=== PATIENT | male | born 1990 | race Caucasian/White ===

== ENCOUNTER 2020-07-07 08:42 | Outpatient (CLI) | payer BC, SELFPAY | END 2020-07-07 08:43 | disposition home or self-care (01) | LOC: ANHCOVIDVC 08:42 | PROVIDERS: PCP Family Medicine | DX: Z23 Encounter for immunization (principal) | CPT/HCPCS: 0001A; 91300 ==

== ENCOUNTER 2020-07-28 08:40 | Outpatient (CLI) | payer BC, SELFPAY | END 2020-07-28 08:41 | disposition home or self-care (01) | LOC: ANHCOVIDVC 08:40 | PROVIDERS: PCP Family Medicine | DX: Z23 Encounter for immunization (principal) | CPT/HCPCS: 0002A; 91300 ==

== ENCOUNTER 2022-03-21 08:52 | Outpatient (CLI) | payer BC, SELFPAY ==
[2022-03-21 09:30] LABS: Hematocrit 43.3 % (42.0-52.0); Hemoglobin 14.9 g/dL (14.0-18.0); Mean Corpuscular HGB Conc 34.4 g/dl (32-36); Mean Corpuscular Hemoglobin 28.9 pg (26-34); Mean Corpuscular Volume 83.9 fl (80-100); Mean Platelet Volume 9.5 fl (7.4-10.4); Platelet Count Result 312 k/mm3 (150-375); Red Blood Count 5.16 M/mm3 (4.6-6.20); Red Cell Distribution Width 12.5 % (11.5-14.5); White Blood Count 6.5 K/mm3 (4.5-10.0)
[2022-03-21 09:31] LABS: Alanine Aminotransferase 76 U/L (6-50); Albumin Level 4.9 g/dL (3.5-5.1); Alkaline Phosphatase 70 U/L (38-126); Anion Gap 10 mmol/L (8-16); Aspartate Amino Transferase 37 U/L (17-59); Bilirubin,Total 0.5 mg/dL (0.2-1.3); Blood Urea Nitrogen 24 mg/dL (9-20); Calcium 9.4 mg/dL (8.4-10.2); Carbon Dioxide 22 mmol/L (22-30); Chloride 108 mmol/L (98-107); Cholesterol 160 mg/dL (0-200); Estimated Glomerular Filt Rate > 60; Glucose 99 mg/dL (65-110); HDL Direct 39 mg/dL; Potassium 4.3 mmol/L (3.4-5.0); Sodium 140 mmol/L (137-145); Triglycerides 51 mg/dL (<150)
[2022-03-21 09:42] LABS: LDL Cholesterol Direct 88 mg/dL
[2022-03-21 09:43] LABS: Appearance Urine Clear (Clear); Bilirubin Urine Negative (Negative); Blood Urine Negative (Negative); Color Urine Yellow (Yellow); Glucose Urine UA Negative (Negative); Ketones Urine Negative (Negative); Leukocyte Esterase Ur Negative LEU/UL (NEGATIVE); Nitrate Urine Negative (Negative); Protein Urine Trace mg/dL (Negative); Specific Grav Ur >= 1.030 (1.001-1.035); Urobilinogen Urine 0.2 mg/dL (<2.0); pH Urine 5.5 (5.0-9.0)
[2022-03-21 10:06] LABS: Mucus Urine Rare /lpf; RBC Urine 0-2 /hpf (0-2); WBC Urine 0-3 /hpf (0-3)
[2022-03-21 10:18] LABS: Add Urine Microscopic? YES
== END 2022-03-21 08:53 | disposition home or self-care (01) ==
LOC: ANHLAB 08:54
PROVIDERS: PCP Family Medicine; Visit Provider Family Medicine
DX: Z00.00 Encounter for general adult medical examination without abnormal findings (principal); R74.8 Abnormal levels of other serum enzymes
CPT/HCPCS: 36415; 80053; 80061; 81001; 84443; 85027

== ENCOUNTER 2022-04-23 09:02 | Emergency (ER) | payer BC, SELFPAY ==
[2022-04-23 09:08] VITALS: BP 126/84; PULSE 107; RESP 20; TEMP 36.3; O2SAT 97
--- NOTE | 2022-04-23 09:43 | ED.URI ---
HPI - URI/Sore Throat General Chief Complaint: Upper Respiratory Infection Stated Complaint: Sore Throat Time Seen by Provider: 04/23/22 09:43 Source: patient, RN notes reviewed and old records reviewed Mode of arrival: ambulatory Limitations: no limitations History of Present Illness HPI Narrative: 32-year-old male presents to the [facility] with complaints sore throat for 3 days. Has been taking ibuprofen and Mucinex. Onset (ago): day(s) (3) Treatments prior to arrival: ibuprofen and cold medicine Related Data Allergies Allergy/AdvReac Type Severity Reaction Status Date / Time No Known Allergies Allergy Verified 04/23/22 09:44 Review of Systems Review of Systems: All systems reviewed & are unremarkable except as noted in HPI and below Constitutional: Constitutional: Reports no additional constitutional complaints Eyes: Eyes: Reports no additional eye complaints ENT: Reports as per HPI, Reports hoarseness, Denies lip swelling and Reports sore throat Cardiovascular: Cardiovascular: Reports no additional cardiovascular complaints, Denies chest pain and Denies dyspnea Respiratory: Respiratory: Reports no additional respiratory complaints, Denies chest congestion, Denies cough and Denies dyspnea Gastrointestinal: Gastrointestinal: Reports no additional gastrointestinal complaints, Denies abdominal pain, Denies nausea and Denies vomiting Musculoskeletal: Musculoskeletal: Reports no additional musculoskeletal complaints Integumentary/Breasts: Skin/Breast: Reports system reviewed and no additional complaints, except as docu Neurologic: Reports system reviewed and no additional complaints, except as documented Psychiatric: Psychiatric: Reports no additional psychiatric complaints Allergic/Immunologic: Allergic/Immunologic: Reports no additional allergic/immunologic complaints [facility] Past Medical History Medical History Elevated liver enzymes Hepatic steatosis Overweight Family History Family History Father Hypertension Mother Hypertension Social History Social History Smoking status: Never smoker Second hand tobacco smoke exposure: No Alcohol intake: current Substance use: never Substance use type: does not use Gender identity (if verbalized by the patient): Male Sexual Orientation (if Verbalized by the Patient): Straight or Heterosexual Comments At the time of my signature, I reviewed and agree with the nursing past medical, surgical, social, and family history. There is no relevant family history pertinent to the patient complaint. Exam Const: General: cooperative, healthy appearing, comfortable, no acute distress, well developed, alert and well nourished Nutritional Appearance: well nourished Orientation/consciousness: patient oriented x3 Limitations: no limitations HENMT: Head: normal to inspection Ears: hearing grossly normal bilaterally and external ears normal Face/Nose/Sinus: Normal external nose present, Normal nares present, Normal nasal mucous membranes and turbinates present and normal facial exam Face and sinus: normal facial exam Mouth: Yes Normal oral and palatal mucosa present, Yes lip normal and Yes moist mucous membranes Throat: uvula midline, abnormal tonsil bilateral erythema, exudates and hypertrophy 2+, posterior oropharynx abnormal erythema, postnasal drainage and uvular edema Eyes: General: appearance normal, both eyes and all related structures Alignment and Position: alignment normal Periorbital: periorbital findings normal Conjunctivae: conjunctivae normal Pupils: Equal, round and reactive pupils present EOM: EOMs intact bilaterally Neck: Neck: normal visual inspection, full ROM, no meningeal signs and lymphadenopathy (Submandibular bilateral) Chest: Chest palpation & inspection: normal inspect
== END 2022-04-23 09:59 | disposition home or self-care (01) ==
PROVIDERS: Emergency Provider Nurse Practitioner; PCP Family Medicine
DX: K12.2 Cellulitis and abscess of mouth (principal); J03.90 Acute tonsillitis, unspecified; K76.0 Fatty (change of) liver, not elsewhere classified
CPT/HCPCS: 87081; 99213; G0463

== ENCOUNTER 2024-06-02 14:26 | Emergency (ER) | payer BC, SELFPAY ==
--- OUTSIDE RECORDS SUMMARY | 2024-06-02 14:35 | XMS_ITS | Referral Summary ---
Author Organization [facility] Address [address] [place] [address] Care Team Providers Care President & Founder Name Role Phone Unavailable Primary Care Provider Unavailabl e Source Comments [facility],non-owned Affiliates and Associated Physician Practices is amultiple site organization consisting of ambulatory clinics and hospital sitesin [place], [place], [place] and [place]. This disclosure is being madepursuant to the Care Everywhere program and may not contain all information available regarding this patient. Last updated 18.[facility] Allergies No known active allergies Medications * Be aware that medications may not be up to date on this document. Alwaysverify current medications with the patient. Medication Sig Dispensed Refills Start Date End Date Status oxyCODONE-acetaminoph en (PERCOCET) 10-325 MG tablet Take 1 Tab by mouth every 6 hours as needed for Pain 30 Tab 0 11/25/2014 Active tamsulosin (FLOMAX) 0.4 MG capsule Take 1 Cap by mouth once daily Take 30 minutes after a meal at the same time each day. 5 Cap 0 11/25/2014 Active ondansetron, disintegrating, (ZOFRAN ODT) 4 MG tablet Take 1 Tab by mouth every 6 hours as needed for Nausea/Vomiting Allow tablet to dissolve on the tongue 20 Tab 0 11/25/2014 Active Social History Tobacco Use Types Packs/Day Years Used Date Smoking Tobacco: Never Alcohol Use Standard Drinks/Week Comments Yes 0 (1 standard drink = 0.6 oz pur e alcohol) socially Sex and Gender Information Value Date Recorded Sex Assigned at Not on file Gender Identity Not on file Sexual Orientation Not on file Last Filed Vital Signs Vital Sign Reading Time Taken Comments Blood Pressure 107/70 11/25/2014 11:50 AM CDT Pulse 80 11/25/2014 11:50 AM CDT Temperature 36.9 ??C (98.4 ??F) 11/25/2014 11:50 AM C DT Respiratory Rate 9 11/25/2014 11:50 AM CDT Oxygen Saturation 100% 11/25/2014 11:50 AM CDT Inhaled Oxygen Concentration - - Weight 94.8 kg (209 lb) 11/25/2014 9:27 AM CDT Height 182.9 cm (6') 11/25/2014 9:27 AM CDT Body Mass Index 28.35 11/25/2014 9:27 AM CDT Plan of Treatment Not on file
--- OUTSIDE RECORDS SUMMARY | 2024-06-02 14:35 | XMS_ITS | Clinical Summary ---
Author Organization [facility] Address [address] [place] [address] Care Team Providers Care Industrial Relations Officer Name Role Phone Unavailable Primary Care Provider Unavailabl e Source Comments [facility],non-owned Affiliates and Associated Physician Practices is amultiple site organization consisting of ambulatory clinics and hospital sitesin [place], [place], [place] and [place]. This disclosure is being madepursuant to the Care Everywhere program and may not contain all information available regarding this patient. Last updated 18.[facility] Allergies No known active allergies Medications * [...] 11/25/2014 9:27 AM CDT Plan of Treatment Health Maintenance Due Date Last Done Comments HIV SCREENING 2004 HEPATITIS C SCREENING 03/26/2007 DTAP/TDAP/TD VACCINES (1 - Tdap) 2008 HEPATITIS B VACCINE (1 of 3 - 19+ 3-dose series) 2008 COVID-19 VACCINE ( - 2023-2 5 season) 2023 INFLUENZA VACCINE (#1) 2023 DEPRESSION SCREENING 04/29/2024 ZOSTER VACCINE (1 of 2) 2039 HIB VACCINE Aged Out No longer eligi ble based on patient's age to complete this topic HPV VACCINE Aged Out No longer eligi ble based on patient's age to complete this topic MENINGOCOCCAL (Group B) VACCINE Aged Out No longer eligible based on patient's age to complete this topic MENINGOCOCCAL VACCINE Aged Out No maria del carmen omayra eligible based on patient's age to complete this topic PNEUMOCOCCAL VACCINE Aged Out No long er eligible based on patient's age to complete this topic
--- OUTSIDE RECORDS SUMMARY | 2024-06-02 14:35 | XMS_ITS | Patient Health Summary ---
Author Organization [facility] Address [address] [place] [address] Care Team Providers Care Wildlife Manager Name Role Phone Unavailable Primary Care Provider Unavailabl e Note from [facility],non-owned Affiliates and Associated Physician Practices is amultiple site organization consisting of ambulatory clinics and hospital sitesin [place], [place]. This disclosure is being madepursuant to the Care Everywhere program and may not contain all information available regarding this patient. Last updated 18.[facility] Allergies No known active allergies Medications * Be aware that medications may not be up to date on this document. Alwaysverify current medications with the patient. * oxyCODONE-acetaminophen (PERCOCET) 10-325 MG tablet(Started 11/25/2014) Take 1 Tab by mouth every 6 hours as needed for Pain * tamsulosin (FLOMAX) 0.4 MG capsule(Started 11/25/2014) Take 1 Cap by mouth once daily Take 30 minutes after a meal at the same time each day. * ondansetron, disintegrating, (ZOFRAN ODT) 4 MG tablet(Started 11/25/2014) Take 1 Tab by mouth every 6 hours as needed for Nausea/Vomiting Allow tablet to dissolve on the tongue Social History Tobacco Use Types Packs/Day Years [...] Mass Index 28.35 11/25/2014 9:27 AM CDT Procedures * CT ABDOMEN PELVIS WO CONTRAST(Performed 11/25/2014) Performed for Flank pain * URINALYSIS REFLEX MICROSCOPIC REFLEX CULTURE(Performed 11/25/2014) * COMPREHENSIVE METABOLIC PANEL(Performed 11/25/2014) * CBC W AUTO DIFFERENTIAL(Performed 11/25/2014) * GROSS + MICRO EXAM(Performed 01/01/1997) Results * CT RENAL STONE PROTOCOL (NO IV AND NO ORAL CONTRAST) (11/25/2014 10:28 AM CDT) Anatomical Region Laterality Modality Abdomen, Pelvis Computed Tomogra phy 11/25/2014 10:3 2 AM CDT Impressions 11/25/2014 10:36 AM CDT 1. Mild to moderate right hydronephrosis and hydroureter extending to a 2-3 mm stone near the right ureterovesicular junction. Narrative 11/25/2014 10:36 AM CDT Examination: CT of the abdomen and pelvis without contrast History: Right flank pain Findings: CT of the abdomen and pelvis was performed without intravenous contrast. No comparison examination is available. Images through the lung bases demonstrate a calcified granuloma in the right lower lobe. No consolidation, pleural effusion, or pneumothorax is seen. There is no pericardial effusion. Noncontrast appearance of the liver appears normal. Gallbladder appears normal. Spleen appears normal. Small splenule is noted. Adrenal glands appear normal. No peripancreatic stranding is seen. No left-sided hydronephrosis or renal stone is noted. There is mild to moderate right-sided hydronephrosis and proximal hydroureter. This extends to a small 2-3 mm stone likely within the distal right ureter near the ureterovesicular junction. The urinary bladder is decompressed, no stone is seen within the bladder. No free pelvic fluid is seen. There is no evidence of bowel obstruction. The appendix is normal. No suspicious osseous lytic or blastic lesion is seen. Procedure Note Ranjit, Fahad B, MD - 11/25/2014 Examination: CT of the abdomen and pelvis without contrast History: Right flank pain Findings: CT of the abdomen and pelvis was performed without intravenous contrast. No comparison examination is available. Images through the lung bases demonstrate a calcified granuloma in the right lower lobe. No consolidation, pleural effusion, or pneumothorax is seen. There is no pericardial effusion. Noncontrast appearance of the liver appears normal. Gallbladder appears normal. Spleen appears normal. Small splenule is noted. Adrenal glands appear normal. No peripancreatic stranding is seen. No left-sided hydronephrosis or renal stone is noted. There is mild to moderate right-sided hydronephrosis and proximal hydroureter. This extends to a small 2-3 mm stone likely within the distal right ureter near the ureterovesicular junction. The urinary bladder is decompressed, no stone is seen within the bladder. No free pelvic fluid is seen. There is no evidence of bowel obstruction. The appendix is normal. No suspicious osseous lytic or blastic lesion is seen. IMPRESSION 1. Mild to moderate right hydronephrosis and hydroureter extending to a 2-3 mm stone near the right ureterovesicular junction. Rea Mccoy MD CT ORDERABLES * (ABNORMAL) URINALYSIS ROUTINE W/REFLEX TO CULTURE (11/25/2014 9:49 AM CDT) Color UA Yellow Straw, Yellow, Dark Yellow 11/25/2014 10:07 AM T [facility] Clarity UA Clear 11/25/2014 10:07 AM T [facility] Specific [place] UA 1.023 1.005 - 1.030 11/25/2014 10:07 AM CDT [facility] pH UA 6.0 5.0 - 8.0 pH 11/25/2014 10:07 AM CDT [facility] Protein UA Negative Negative 11/25/2014 10:07 AM CDT [facility] Blood UA 3+(A) Negative 11/25/2014 10:07 AM CDT [facility] Leukocyte UA Negative Negative 11/25/2014 10:07 AM CDT [facility] Nitrite UA Negative Negative 11/25/2014 10:07 AM CDT [facility] Glucose UA Negative Negative 11/25/2014 10:07 AM CDT [facility] Ketone UA Negative Negative 11/25/2014 10:07 AM CDT [facility] Bilirubin UA Negative Negative 11/25/2014 10:07 AM CDT [facility] Urobilinogen UA 0.2 0.1 - 1.0 EU/dL 11/25/2014 10:07 AM CDT [facility] WBC UA Auto 0-2 0-2, 2-5 # /hpf 11/25/2014 10:07 AM CDT [facility] RBC UA Auto 20-50(A) 0-2, 2-5 # /hpf 11/25/2014 10:07 AM CDT [facility] Epithelial Cell UA Auto 0-2 0-2, 2-5 # /hpf 11/25/2014 10:07 AM CDT [facility] Reflex Status Culture not indicated 11/25/2014 10:07 AM CDT [facility] Urine URINE SPECIMEN OBTAINED BY CLEAN CATCH PROCEDURE / Unknown 11/25/2014 9:49 AM CDT 11/25/2014 9:55 AM CDT Rea Mccoy MD LAB - URINALYSIS ORD ERABLES [facility] [address], [place] [id number] * CBC W AUTO DIFFERENTIAL (11/25/2014 9:49 AM CDT) WBC 8.0 4.4 - 10.7 x10^9/L 11/25/2014 9:58 AM CDT [facility] WBC Corrected x10^9/L 11/25/2014 9:58 AM CDT [facility] RBC 4.93 3.80 - 5.40 x10^12/L 11/25/2014 9:58 AM CDT [facility] Hemoglobin 14.5 12.0 - 17.6 gm/dL 11/25/2014 9:58 AM CDT [facility] Hematocrit 41.4 35.2 - 51.7 % 11/25/2014 9:58 AM CDT [facility] MCV 84.0 80.7 - 98.3 fl 11/25/2014 9:58 AM CDT [facility] MCH 29.4 26.7 - 34.0 pg 11/25/2014 9:[address] [facility] MCHC 35.0 30.8 - 35.9 gm/dL 11/25/2014 9:[address] [facility] Platelet Count 306 153 - 416 x10^9/L 11/25/2014 9:[address] [facility] RDW-CV 12.4 12.1 - 14.9 % 11/25/2014 9:[address] [facility] MPV 9.8 9.4 - 12.9 fl 11/25/2014 9:[address] [facility] Neutrophils % 61.2 44.0 - 73.0 % 11/25/2014 9:[address] [facility] Lymphocytes % 26.7 20.0 - 43.0 % 11/25/2014 9:[address] [facility] Monocytes % 10.2 5.0 - 13.0 % 11/25/2014 9:[address] [facility] Eosinophils % 1.2 0.0 - 6.0 % 11/25/2014 9:[address] [facility] Basophils % 0.5 0.0 - 2.0 % 11/25/2014 9:[address] [facility] Immature Granulocytes 0.2 0 - 1 % 11/25/2014 9:[address] [facility] Neutrophil Absolute 4.91 2.01 - 7.14 x10^9/L 11/25/2014 9:[address] [facility] Lymphocytes Absolute 2.14 1.07 - 3.94 x10^9/L 11/25/2014 9:[address] [facility] Monocytes Absolute 0.82 0.26 - 1.07 x10^9/L 11/25/2014 9:[address] [facility] Eosinophils Absolute 0.10 0 - 0.47 x10^9/L 11/25/2014 9:[address] [facility] Basophils Absolute 0.04 0 - 0.08 x10^9/L 11/25/2014 9:[address] [facility] Immature Granulocytes Absolute 0.02 0.00 - 0.06 x10^9/L 11/25/2014 9:[address] [facility] nRBC Auto 0 /100 WBC 11/25/2014 9:[address] [facility] Blood BLOOD SPECIMEN / Unknown 11/25/2014 9:49 AM CDT 11/25/2014 9:55 AM CDT Rea Mccoy MD LAB - HEMATOLOGY ORD ERABLES [facility] [address] [place] [address] * (ABNORMAL) COMPREHENSIVE METABOLIC PANEL (11/25/2014 9:49 AM CDT) [facility] Glucose 110(H) 74 - 106 mg/dL 11/25/2014 10:13 AM CDT [facility] Sodium 143 136 - 145 mmol/L 11/25/2014 10:13 AM CDT [facility] Potassium 3.8 3.5 - 5.1 mmol/L 11/25/2014 10:13 AM CDT [facility] Chloride 107 98 - 107 mmol/L 11/25/2014 10:13 AM CDT [facility] CO2 24 22 - 31 mmol/L 11/25/2014 10:13 AM CDT [facility] Calcium 9.1 8.5 - 10.1 mg/dL 11/25/2014 10:13 AM CDT [facility] Anion Gap 12 5 - 20 mmol/L 11/25/2014 10:13 AM CDT [facility] BUN 16 7 - 21 mg/dL 11/25/2014 10:13 AM CDT [facility] Creatinine 1.20 0.50 - 1.30 mg/dL [facility]/25[facility]2014 [facility] Alkaline Phosphatase 106 38 - 126 U/L 11/25/2014 10:13 AM CDT [facility] ALT 87(H) 12 - 78 U/L 11/25/2014 10:13 AM CDT [facility] AST 30 5 - 40 U/L 11/25/2014 10:13 AM CDT [facility] Protein Total 8.2 6.4 - 8.2 gm/dL 11/25/2014 10:13 AM CDT [facility] Albumin 4.6 3.4 - 5.0 gm/dL 11/25/2014 10:13 AM CDT [facility] Bilirubin Total 0.4 0.2 - 1.0 mg/dL 11/25/2014 10:13 AM CDT [facility] eGFR by MDRD >60 >60 mL/min/1.7 2 11/25/2014 10:13 AM CDT [facility] eGFR by MDRD >60 >60 mL/min/1.7 2 11/25/2014 10:13 AM CDT [facility] Blood BLOOD SPECIMEN / Unknown 11/25/2014 9:49 AM CDT 11/25/2014 9:56 AM CDT Rea Mccoy MD LAB - CHEMISTRY MARLEY BARRAG[place] [facility] [address] [place] [address] * GROSS + MICRO EXAM (01/01/1997 11:05 AM CDT) Result CASE NUMBER [id number] [facility] PATH REPORT Comment: ORDERING PHYSICIAN ??TY ALANIZ SPECIMEN TYPE ?Duodenum, Biopsy CLINICAL HISTORY ? The patient is a 6-year-old boy with abdominal pain who underwent an upper endoscopy. ??Operative finding was esophagitis. GROSS DESCRIPTION ? The specimens are received fixed in formalin in three containers for gross and microscopic examination. ??In the first container labeled A, duodenum is a single minute fragment of yellow-uribe soft tissue measuring 0.3 cm. in greatest dimension. ??The specimen is submitted in toto as A1 . In the next container labeled B, gastric are four minute fragments of conrad-uribe soft tissue each with a measurement of 0.3 cm. in greatest dimension. ??The specimens are submitted in toto as B1 . In the next container labeled C, esophagus is a single minute fragment of conrad, soft tissue measuring 1 mm. in greatest dimension. ??The specimen is submitted in toto as C1 . ??(CT/akn) MICROSCOPIC DESCRIPTION ? 9 slides, H/E Sections from the duodenum show a single fragment of duodenal mucosa with a normal villous architecture and a normal complement of inflammatory cells. ?? Sections from the gastric biopsies show very small fragments of superficial gastric mucosa without significant inflammation. Sections from the esophagus biopsy show a single very small and superficial fragment of squamous epithelium. ??Papillae are not seen. ?? (PEDRO/hm) DIAGNOSIS ? DIAGNOSIS ?A) DUODENUM, BIOPSY ?- NO PATHOLOGIC DIAGNOSIS. ? B) STOMACH, BIOPSY ?- NO PATHOLOGIC DIAGNOSIS. ? C) ESOPHAGUS, BIOPSY ?- INSUFFICIENT FOR DIAGNOSIS. [employer] Developer ? Daya Constantino RESIDENT IN PATHOLOG JRobin Swartz M.D. PATHOLOGIST ?Kvng Moon M.D. ELECTRONICALLY [facility] MISCELLANEOUS SAMPLES / Unknown 01/01/1997 11:05 AM CDT 01/01/1997 12:24 PM CDT Historical Provider LAB - PATHOLOGY/C YTOLOGY ORDERABLES [facility] PATH REPORT
[2024-06-02 15:11] VITALS: BP 128/85; PULSE 103; RESP 18; TEMP 36.1; O2SAT 99
[2024-06-02 15:14] LABS: EDSTREPNEGPOS1 Negative (Negative)
[2024-06-02 15:26] LABS: EDINFLUASCREEN Negative (Negative); EDINFLUBSCREEN Negative (Negative)
[2024-06-02 15:26] LABS: EDCOVIDSCREEN Negative (Negative)
--- NOTE | 2024-06-02 15:58 | ED_ITS ---
HPI - URI/Sore Throat General Stated Complaint: flu like symptoms Time Seen by Provider: 06/02/24 15:58 Source: patient, RN notes reviewed and old records reviewed Mode of arrival: ambulatory Limitations: no limitations History of Present Illness HPI Narrative: patient presents with complaints of flu-like symptoms for 3 days. He reports that he has been taking [id number] medication with good results. Says that he is feeling better today than he did yesterday. He reports worse symptom is body aches. He denies any shortness of breath. He denies any injury or trauma. He is not in any distress. Related Data Home Medications ?Medication ?Instructions ?Recorded ?Confirmed ?Last Taken ?Type No Home Medications 05/12/24 05/12/24 Unknown History Allergies Allergy/AdvReac Type Severity Reaction Status Date / Time No Known Allergies Allergy Verified 06/02/24 15:59 Review of Systems Review of Systems: All systems reviewed & are unremarkable except as noted in HPI and below Constitutional: Constitutional: Reports body ache(s), Reports chills, Reports fever(s) and Reports lethargy ENT: Reports system reviewed and no additional complaints, except as documented, Reports nasal congestion and Reports nasal discharge Cardiovascular: Cardiovascular: Reports no additional cardiovascular co mplaints Respiratory: Respiratory: Reports cough Gastrointestinal: Gastrointestinal: Reports no additional gastrointestinal complaints [facility] Past Medical History Medical History Overweight Hepatic steatosis Elevated liver enzymes Family History Family History Father Hypertension Mother Hypertension Social History Social History Smoking status: Never smoker Second hand tobacco smoke exposure: No Alcohol intake: current Substance use: never Substance use type: does not use Living arrangements: with family Occupation/Education: occupation Gender identity (if verbalized by the patient): Male Sexual Orientation (if Verbalized by the Patient): Straight or Heterosexual Comments At the time of my signature, I reviewed and agree with the nursing past medical, surgical, social, and family history. There is no relevant family history pertinent to the patient complaint. Exam Const: General: cooperative, no acute distress, alert and awake Orientation/consciousness: oriented to person, oriented to place and oriented to time HENMT: Head: normal to inspection Ears: TM's normal bilaterally Mouth: Yes moist mucous membranes Throat: posterior oropharynx normal Resp: Effort & Inspection: normal respiratory effort and able to speak in complete sentences Auscultation: clear to auscultation bilaterally, no crackles, no rales, no rhonchi and no wheezes Cardio: Palpation: normal PMI Rate: regular rate Rhythm: regular rhythm Heart sounds: S1 normal heart sound present and S2 normal heart sound present Neuro: General: oriented to person, oriented to place and oriented to time Cranial nerves: Yes CN's II-XII intact bilaterally Psych: Appearance: grossly normal Thought process: Normal thought process present Insight: Good insight present (Psych) Judgement: Good judgement present (Psych) Course Course Level of Care: Express Care Visit Vital Signs Vital signs: Vital Signs Temperature 96.9 F L 06/02/24 15:11 Pulse Rate 103 H 06/02/24 15:11 Respiratory Rate 18 06/02/24 15:11 Blood Pressure 128/85 06/02/24 15:11 Pulse Oximetry 99 06/02/24 15:11 Oxygen Delivery Room Air 06/02/24 15:11 Temperature 96.9 F L 06/02/24 15:11 Pulse Rate 103 H 06/02/24 15:11 Respiratory Rate 18 06/02/24 15:11 Blood Pressure 128/85 06/02/24 15:11 Pulse Oximetry 99 06/02/24 15:11 Oxygen Delivery Room Air 06/02/24 15:11 Reviewed MDM - URI/Sore Throat MDM Narrative Medical decision making narrative: Patient with positive influenza. Supportive care measures discussed. He verbalizes understanding. He is nontoxic appearing, stable for discharge home. Discharge instructions reviewed with patient, as well as provided in writing per nursing staff. The instructions also include specific and strict return/GO TO THE ER as well as f/u information. All questions have been answered, and the patient deny any further questions with discharge and discharge plan. Some parts of this dictation were generated by voice recognition software and may contain typographical and/or grammatical inaccuracies. Differential Diagnosis Differential diagnosis: Likely upper respiratory infection, viral infection and influenza Medical Records Attestation: I reviewed the patient's medical records. Lab Data Attestation: I reviewed the patient's lab results. Labs: Lab Results 06/02/24 06/02/24 06/02/24 Range/Units 15:12 15:24 15:25 POC Influenza A Ag Negative (Negative) POC Influenza B Ag Negative (Negative) POC SARS CoV-2 Ag Negative (Negative) POC Grp A Strep Screen Negative (Negative) Discharge Plan Discharge Clinical Impression: Influenza Patient Disposition: Home, Self-Care Condition: Stable Instructions: Antibiotic Form, Influenza (ED) Additional Instructions: continue supportive care measures, follow-up with primary care provider. Emergency department for any new or worse symptoms Patient Language: Danish Prescriptions: No Action No Home Medications Follow-up/Referrals: Vikas Spence MD [Primary Care Provider] - 2 Weeks Stand Alone Forms: Work/School Release IP Time of Disposition: 16:06
== END 2024-06-02 16:10 | disposition home or self-care (01) ==
PROVIDERS: Emergency Provider Nurse Practitioner Family; PCP Family Medicine
DX: J11.1 Influenza due to unidentified influenza virus with other respiratory manifestations (principal); Z20.822 Contact with and (suspected) exposure to COVID-19
CPT/HCPCS: 87081; 87426; 87804; 87880; 99213; G0463

== ENCOUNTER 2024-11-16 11:15 | Outpatient (CLI) | payer BC, SELFPAY ==
--- OUTSIDE RECORDS SUMMARY | 2024-11-16 11:17 | XMS_ITS | Clinical Summary ---
Author Organization [facility] Address [address] 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 This disclosure is being madepursuant to the Care Everywhere program and may not contain all information available regarding this patient. Last updated 18.[facility] Allergies No known active allergies Medications * Be aware that medications may not be up to date on this document. Alwaysverify current medications with the patient. oxyCODONE-aceta minophen (PERCOCET) 10-325 MG tablet Take 1 Tab [...] mouth every 6 hours as needed for Nausea/Vomiti ng Allow tablet to dissolve on the tongue 20 Tab 0 11/25/2014 Active Social History Tobacco Use Types Packs/Day Years Used Date Smoking Tobacco: Never Alcohol Use Standard Drinks/Week Comments Yes 0 (1 standard drink = 0.6 oz pur e alcohol) socially Sex and Gender Information Value Date Recorded Sex Assigned at Not on file Legal Sex Male 5:37 AM JAI ALAI [employer]ER Gender Identity Not on file Sexual Orientation Not on file Last Filed Vital Signs Vital Sign Reading Time Taken Comments Blood Pressure 107/70 11/25/2014 11:50 AM CDT Pulse 80 11/25/2014 11:50 AM CDT Temperature 36.9 C (98.4 F) 11/25/2014 11:50 AM CDT Respiratory Rate 9 11/25/2014 11:50 AM CDT [...] of 3 - 19+ 3-dose series) 2008 HPV VACCINE (1 - 3-dose SCDM series) 2016 COVID-19 VACCINE (1 - 2023-2 5 season) 2023 DEPRESSION SCREENING 04/29/2024 INFLUENZA VACCINE (#1) 2024 ZOSTER VACCINE (1 of 2) 2039 HIB VACCINE Aged Out No longer eligi ble based on patient's age to complete this topic MENINGOCOCCAL (Group B) VACC INE SHARED DECISION-MAKING Aged Out No longer eligibl e based on patient's age to complete this topic MENINGOCOCCAL GROUPS A/C/Y/W VACCINE Aged Out No longer eligible b ased on patient's age to complete this topic PNEUMOCOCCAL VACCINE Aged Out No long er eligible based on patient's age to complete this topic Insurance [facility]
[2024-11-16 11:50] LABS: Hematocrit 41.9 % (42.0-52.0); Hemoglobin 13.7 g/dL (14.0-18.0); Immature Granulocyte Percent A 0.4 % (0-0.5); Lymphocytes Absolute Auto 1.27 K/mm3 (0.9-3.2); Mean Corpuscular HGB Conc 32.7 g/dl (32-36); Mean Corpuscular Hemoglobin 28.2 pg (26-34); Mean Corpuscular Volume 86.4 fl (80-100); Nucleated Red Blood Cells Absolute Auto 0.000 K/mm3 (0.0-0.012); Nucleated Red Blood Cells Perc 0.0 % (0.0-0.2); Platelet Count Result 330 k/mm3 (150-375); Red Blood Count 4.85 M/mm3 (4.6-6.20); White Blood Count 5.4 K/mm3 (4.5-10.0)
[2024-11-16 12:03] LABS: Add Urine Microscopic? YES; Appearance Urine Cloudy (Clear); Glucose Urine UA Negative (Negative); Leukocyte Esterase Ur Trace LEU/UL (Negative); Nitrate Urine Negative (Negative); Non Pathogenic Casts 0-2; Specific Grav Ur 1.035 (1.001-1.035)
[2024-11-16 12:12] LABS: Alanine Aminotransferase 58 U/L (6-50); Albumin Level 4.4 g/dL (3.5-5.1); Alkaline Phosphatase 59 U/L (38-126); Anion Gap 10 mmol/L (4-12); Aspartate Amino Transferase 43 U/L (17-59); Bilirubin,Total 0.4 mg/dL (0.2-1.3); Blood Urea Nitrogen 21 mg/dL (9-20); Calcium 9.1 mg/dL (8.4-10.2); Carbon Dioxide 27 mmol/L (22-30); Chloride 101 mmol/L (98-107); Estimated Glomerular Filt Rate > 60; Glucose 126 mg/dL (65-110); Potassium 3.6 mmol/L (3.4-5.0); Sodium 138 mmol/L (137-145); Total Protein 8.2 g/dL (6.3-8.2)
== END 2024-11-16 11:16 | disposition home or self-care (01) ==
LOC: ANHLAB 11:16
PROVIDERS: PCP Family Medicine
DX: R50.9 Fever, unspecified (principal); R10.9 Unspecified abdominal pain; R63.0 Anorexia
CPT/HCPCS: 36415; 80053; 81001; 85025

== ENCOUNTER 2024-12-18 02:32 | Day surgery (SDC) | payer BC, SELFPAY ==
[2024-12-07 10:37] VITALS: BMI 29.2
[2024-12-18 08:39] VITALS: BP 124/80; PULSE 78; RESP 18; TEMP 36.4; O2SAT 99; BMI 27.5
[2024-12-18] MEDS: LACTATED RINGERS 1,000 ML 150 ML IV CONT (08:49)
--- NOTE | 2024-12-18 08:56 | WPDANESEPPF ---
Anes - Initial Pre Proc Eval Procedure: Operation Date: 12/18/24 10:00 Proposed Procedures p Diagnostic Colonoscopy - Angel Krishnamurthy MD Date/Time: 12/18/24 08:56 Surgeon: Angel Krishnamurthy MD Pre Op Diagnosis: Anemia, unspecified, Lower abdominal pain Patient Data Age: 34 Gender: M Height: 1.8 m Weight: 89.5 kg Last Vital Signs Temp 36.4 C L 12/18/24 08:39 Pulse 78 12/18/24 08:39 Resp 18 12/18/24 08:39 BP 124/80 12/18/24 08:39 Pulse Ox 99 12/18/24 08:39 O2 Del Method Room Air 12/18/24 08:39 Allergies Allergy/AdvReac Type Severity Reaction Status Date / Time No Known Allergies Allergy Verified 12/18/24 08:38 Home Medications ?Medication ?Instructions ?Recorded ?Confirmed ?Type No Home Medications 05/12/24 12/07/24 History Patient hx anesthesia problems: none Family hx anesthesia problems: none Results Review: All pre-operative results and documents have been reviewed as part of the pre-operative evaluation. [facility] Past Medical History Medical History Overweight Hepatic steatosis Elevated liver enzymes Family History Family History Father Hypertension Mother Hypertension Social History Social History Smoking status: Former smoker Second hand tobacco smoke exposure: No Alcohol intake: never Substance use: never Substance use type: does not use Living arrangements: with family Occupation/Education: occupation Gender identity (if verbalized by the patient): Male Sexual Orientation (if Verbalized by the Patient): Straight or Heterosexual Spiritual care concerns: No Anes - Eval Final PreProcedure Day of Procedure 12/18/24 08:56 Patient weight: overweight Heart: regular rate and rhythm Lungs: clear to auscultation Airway: Mallampati scale class II Neurological: alert and oriented Last oral intake: >/= 8 hours ASA classification: II Emergent: no Anesthetic plan: proceed Anesthesia type and monitoring: general GIVS and standard monitoring Results Review: All pre-operative results and documents have been reviewed as part of the pre-operative evaluation. Informed Consent: The patient's anesthetic plan and its attendant risks and benefits were discussed with the patient/family/POA. Questions were solicited and answers provided to the satisfaction of the patient/family/POA.
--- NOTE | 2024-12-18 09:43 | P.HP_ITS ---
History of Present Illness History of Present Illness Consent: Risks, benefits, and alternatives have been discussed and questions answered. Patient agrees to proceed with procedure. Chief complaint: Anemia, unspecified, Lower abdominal pain Narrative: Vikas Hercules is a 34 year old male with llq pain and mild anemia, never had colonoscopy Review of Systems Review of Systems: All systems reviewed & are unremarkable except as noted in HPI and below PMFSH Past Medical History Medical History (Updated 12/18/24 @ 09:44 by Angel Krishnamurthy MD) LLQ pain Overweight Hepatic steatosis Elevated liver enzymes Family History Family History Father Hypertension Mother Hypertension Social History Social History Smoking status: Former smoker Second hand tobacco smoke exposure: No Alcohol intake: never Substance use: never Substance use type: does not use Living arrangements: with family Occupation/Education: occupation Gender identity (if verbalized by the patient): Male Sexual Orientation (if Verbalized by the Patient): Straight or Heterosexual Spiritual care concerns: No Meds Home Medications and Allergies Home Medications ?Medication ?Instructions ?Recorded ?Confirmed ?Type No Home Medications 05/12/24 12/07/24 H istory Allergies Allergy/AdvReac Type Severity Reaction Status Date / Time No Known Allergies Allergy Verified 12/18/24 08:38 Vital Signs Vital Signs - 24 hr 12/18/24 08:39 Temperature 97.5 F L Pulse Rate 78 Respiratory Rate 18 Blood Pressure 124/80 Pulse Oximetry 99 Oxygen Delivery Room Air Exam Const: General: comfortable and no acute distress HENMT: Face/Nose/Sinus: Normal nares present Eyes: General: appearance normal, both eyes and all related structures Neck: Neck: no JVD Resp: Auscultation: clear to auscultation bilaterally Cardio: Rate: regular rate Rhythm: regular rhythm GI: Inspection: non-distended GI Palp: Yes Soft to palpation Skin: General skin exam: normal color Neuro: General: gait normal Speech: normal speech Extrem: General: normal to inspection Psych: Mental Status: mental status grossly normal Assessment and Plan Assessment and plan (1) LLQ pain: Code(s): R10.32 - Left lower quadrant pain Status: Acute Assessment and Plan: colonoscopy
[2024-12-18 09:57] VITALS: BP 85/61; PULSE 86; RESP 17; O2SAT 98
[2024-12-18 10:07] VITALS: BP 107/64; PULSE 94; RESP 20; O2SAT 97
[2024-12-18 10:17] VITALS: BP 108/75; PULSE 79; RESP 18; O2SAT 98
== END 2024-12-18 10:26 | disposition home or self-care (01) ==
PROVIDERS: PCP Family Medicine; Visit Provider Internal Medicine Gastroenterology
PROC: 0DJD8ZZ Inspection of Lower Intestinal Tract, Via Natural or Artificial Opening Endoscopic (ICD-10-PCS; CPT 45378; principal; 2024-12-18 10:00)
DX: K64.8 Other hemorrhoids (principal); K57.30 Diverticulosis of large intestine without perforation or abscess without bleeding; D64.9 Anemia, unspecified; Z87.891 Personal history of nicotine dependence; Z87.19 Personal history of other diseases of the digestive system
CPT/HCPCS: 45378; J2704; J7120